=== PATIENT | male | born 1990 | race Caucasian/White ===

== ENCOUNTER 2021-06-23 18:56 | Emergency (ER) | payer SELFPAY ==
[2021-06-23] VITALS (7 sets, daily range): BP systolic 113–151; BP diastolic 70–79; PULSE 90–108; RESP 18–26; TEMP 37.7–38.3; O2SAT 94–98; BMI 27.4
--- NOTE | 2021-06-23 19:06 | XRR_ITS ---
PROCEDURE INFORMATION: Exam: XR Chest Exam date and time: 06/23/2021 7:06 PM Age: 31 years old Clinical indication: Cough and fever; Patient HX: Cough, fever, body aches TECHNIQUE: Imaging protocol: XR of the chest. Views: 1 view. COMPARISON: No relevant prior studies available. FINDINGS: Lungs: Ill-defined peripheral bibasilar opacities. Pleural spaces: Unremarkable. No pleural effusion. No pneumothorax. Heart/Mediastinum: Unremarkable. No cardiomegaly. Bones/joints: Unremarkable. XR/XR chest 1V portable [id number] IMPRESSION: Ill-defined peripheral bibasilar opacity suspicious for multifocal pneumonia. Radiation Dose CTDIVOL = (mGy): DLP = (mGy-cm)
--- NOTE | 2021-06-23 20:26 | ED_ITS ---
HPI - COVID General: Chief Complaint: Infusion: Covid [facility] Stated Complaint: coughing, fevers, body aches Time Seen by Provider: 06/23/21 19:57 Triage information: No fever, cough or shortness of breath . No known COVID + exposure last 14 days History of Present Illness: MD complaint: has COVID symptoms Prior covid testing: no COVID 19 common symptoms: positive fever(s), chills, cough, dyspnea, body aches, headache(s), throat pain, nasal congestion and nausea; negative vomiting COVID 19 other sytmptoms: negative requiring oxygen or respiratory distress Onset (ago): day(s) (5-7) Treatment prior to arrival: ibuprofen and cold medicine COVID Results: SARS-CoV-2 Antigen (Rapid) Positive (Negative) H 06/23/21 19:55 06/23/21 Review of Systems Const: Reports: fever(s), chills and body aches ENMT: Reports: throat pain and nasal congestion Resp: Reports: dyspnea GI: Reports: nausea; Denies: vomiting Neuro: Reports: headache(s) PFSH ED PFSH: Social History (Updated 12/28/20 @ 14:21 by Abran Cesar LPN) Smoking and tobacco status: never smoked Second hand smoke exposure: No Physical Exam Const: COMMON NORMALS: no acute distress, patient oriented x3 and alert HENMT: COMMON NORMALS: normocephalic and Normal external nose present HEAD & SCALP: normocephalic FACE & SINUS: normal facial exam NOSE: Normal external nose present and Normal nares present Chest: COMMONS NORMALS: normal inspection of the chest Resp: COMMON NORMALS: normal respiratory effort, No use of accessory muscles and clear to auscultation bilaterally AUSCULTATION: clear to auscultation bilaterally Cardio: COMMON NORMALS: regular rhythm RATE: tachycardic RHYTHM: regular rhythm GI: COMMON NORMALS: Normal to inspection, nondistended, normoactive bowel sounds present Neuro: COMMON NORMALS: patient oriented x3 SENSORIUM/ORIENTATION: Yes alert Course Vital Signs: Vital signs: Vital Signs Temperature 99.8 F H 06/23/21 23:19 Pulse Rate 94 06/23/21 23:19 Respiratory Rate 18 06/23/21 23:19 Blood Pressure 119/74 06/23/21 23:19 Pulse Oximetry 98 06/23/21 23:19 MDM - COVID MDM Narrative: Medical decision making narrative: 31-year-old with cough and fever. He has body aches as well. Chest x-ray shows bibasilar hazy infiltrates he is Covid positive by rapid antigen testing he has agreed to take monoclonal antibody infusion. Since he is day 7/8, and it is the weekend, he will have to get it in the ER. He will be monitored during, and after to watch for side effects or adverse reaction, then released. Lab Data: Labs: Lab Results 06/23/21 06/23/21 19:55 19:55 Influenza Type A A g Negative (Negative) Influenza Type B A g Negative (Negative) SARS-CoV-2 Ag (Rap id) Positive H (Negative) COVID Results: SARS-CoV-2 Antigen (Rapid) Positive (Negative) H 06/23/21 19:55 06/23/21 Discharge Plan Discharge Patient Disposition: Home Clinical Impression: Pneumonia due to 2019 novel coronavirus Condition: Stable Prescriptions: No Action No Known Home Medications RF: 0 Discharge Orders: Discharge ED (Routine); Ordered 06/23/21 Ordered By: Manny Sumner Discharge Diet: Advance as tolerated Discharge Activity: Limit activity as instructed Activity Restrictions/Additional Instructions: You should quarantine at home, until you are at least 14 days out of the start of your symptoms. Return for worsening shortness of breath, worsening cough, other concerning symptoms. You were given the monoclonal antibody infusion tonight which helps to stop the replication of the virus, and should improve your symptoms. Coding Level of Care Code ED Audograph Operator for Feng Fwpopeye Exam Detailed
[2021-06-23 20:34] LABS: Influenza A by IFA Negative (Negative); Influenza B by IFA Negative (Negative); SARS Covid-2 Antigen Positive (Negative)
[2021-06-23] MEDS: acetaminophen 500 mg Tablet 1000 MG PO (22:41)
== END 2021-06-23 23:21 | disposition home or self-care (01) ==
PROVIDERS: Emergency Medicine; Emergency Provider Emergency Medicine
DX: U07.1 COVID-19 (principal); J12.82 Pneumonia due to coronavirus disease 2019
CPT/HCPCS: 71045; 87426; 87804; 96365; 99284

== ENCOUNTER 2021-06-28 20:47 | Emergency (ER) | payer OTHER, SELFPAY ==
[2021-06-28 20:55] VITALS: BP 106/68; PULSE 106; RESP 20; TEMP 36.8; O2SAT 98; BMI 25.9
--- NOTE | 2021-06-28 21:05 | W.ED.BACK ---
HPI - Back Pain/Injury General: Chief Complaint: Back Pain/Injury Stated Complaint: Lower back pain, COVID+ NUMBNESS Time Seen by Provider: 06/28/21 21:05 History of Present Illness: HPI Narrative: Mr. Melgar is a 31-year-old gentleman with significant past medical history of Covid who presents to the emergency department due to back pain. He endorses continued cough though mild improvement no other typical Covid symptoms and had a coughing fit earlier and sudden onset of low back pain. Intensity symptoms is moderate to severe and worse with movement. Course has persisted. He describes tingling in his fingers and knees however no loss of continence. No other specific changes to health, exacerbating, or alleviating factors identified. Review of Systems General: Reports: 10 or more systems reviewed and unremarkable except in HPI and below PFSH ED PFSH: Social History Smoking and tobacco status: never smoked Second hand smoke exposure: No Physical Exam Narrative: EXAM NARRATIVE: GENERAL/CONSTITUTIONAL -ill-appearing. Uncomfortable appearing Eyes -no scleral icterus, no conjunctival injection ENMT - Atraumatic external nose and ears. Moist mucous membranes NECK - supple. trachea midline CARDIOVASCULAR -tachycardic rate and regular rhythm RESPIRATORY -diminished to auscultation bilaterally. Tachypnea. Normal SPO2. ABDOMEN/GI - Nontender/Nondistended. MSK - Extremities without obvious deformity or tenderness to palpation. L-spine tenderness palpation worse in the paraspinal regions though some midline tenderness. There is mild deformity of bilateral hands consistent with carpal pedal spasms. SKIN - Warm, Dry NEURO - alert and appropriately oriented. Moves all extremities equally. Course ED course: - Patient was seen and evaluated by me at bedside - Patient placed on cardiac monitors, IV access obtained - Initial evaluation notable for ill appearing as noted above with tachypnea -Symptom treatment ordered - Labs notable for no leukocytosis. ABG with respiratory alkalosis. Decreased PO2 however normal SPO2 on pulse oximeter. No acute electrolyte abnormalities. - Imaging notable for chest x-ray with left lower lobe pneumonia, I believe that this is related to patient's known Covid diagnosis. No L-spine abnormalities. - Upon serial reexamination after treatment the patient was markedly improved with resumption of normal respiratory status and improvement in symptoms - Based on patient history, evaluation, labs, and imaging as interpreted the most likely cause of the patient's condition is cough related musculoskeletal pain, COVID-19, and hyperventilation - The results of ED evaluation were discussed with the patient including prescriptions and/or symptomatic cares (if applicable) including appropriate and responsible use, followup plan, and return precautions. The patient verbalized understanding and felt safe for discharge. - Patient discharged in satisfactory condition. Vital Signs: Vital signs: Vital Signs Temperature 98.3 F 06/28/21 20:55 Pulse Rate 94 06/29/21 00:28 Respiratory Rate 14 06/29/21 00:28 Blood Pressure 129/74 06/29/21 00:28 Pulse Oximetry 97 06/29/21 00:28 MDM - Back Pain/Injury Medical Records: Attestation: I reviewed the patient's medical records. Lab Data: Attestation: I reviewed the patient's lab results. Labs: Lab Results 06/28/21 06/28/21 06/28/21 21:31 22:25 22:25 WBC 9.6 10^3/uL 10^3/ uL (4.0-10.0) RBC 4.61 10^6/uL 10^6 /uL (4.1-5.3) Hgb 13.0 g/dL g/dL (11.7-16.6) Hct 38.1 % L % (42.0-52.0) MCV 82.6 fl fl (80-94) MCH 28.2 pg pg (28.0-34.0) MCHC 34.1 g/dL g/dL (30.0-36.0) RDW 11.9 % L % (12.1-15.1) Plt Count 330 10^3/cmm 10^3 /cmm (130-400) MPV 9.9 fL fL (7.4-10.4) Neut % (Auto) 78.2 % % Lymph % (Auto) 12.0 % % Gibson % (Auto) 8.4 % % Eos % (Auto) 0.9 % % Baso % (Auto) 0.2 % % Neut # (Auto) 7.49 10^3/uL 10^3 /uL (1.8-7.7) Lymph # (Auto) 1.2 10^3/uL 10^3/ uL (0.8-4.8) Gibson # (Auto) 0.8 10^3/uL 10^3/ uL (0.2-0.9) Eos # (Auto) 0.1 10^3/uL 10^3/ uL (0.0-0.8) Baso # (Auto) 0.0 10^3/uL 10^3/ uL (0.0-0.1) Nucleated RBC % (a uto) 0 % % Nucleated RBCs # 0.0 /100WBC /100W BC Specimen Type Arterial ABG pH 7.63 H* (7.35-7.45) ABG pCO2 20.7 mmHg L mmHg (35-45) ABG pO2 72.3 mmHg L mmHg (80.0-100.0) ABG HCO3 21.7 mmol/L L mmo l/L (22-26) ABG Base Excess 2.5 mmol/L H mmol /L (-2.0-2.0) Cesar Test Pos Hematocrit 41.6 % L % (42-52) O2 Delivery Device Room air FiO2 21.0 % % Credit And Collections Analyst ID En Sodium 141 mmol/L mmol/L (136-145) Potassium 3.6 mmol/L mmol/L (3.5-5.1) Chloride 105 mmol/L mmol/L (98-107) Carbon Dioxide 22 mmol/L mmol/L (22-29) Anion Gap 17.6 (5-19) BUN 11 mg/dL mg/dL (6-20) Creatinine 0.7 mg/dL mg/dL (0.7-1.2) GFR Calculation 132.4 mL/min H mL /min (90-130) Glucose 121 mg/dL H mg/dL (65-115) Calculated Osmolal ity 293 mOsm/kg mOsm/ kg (285-295) Calcium 8.4 mg/dL L mg/dL (8.5-10.5) Total Bilirubin 0.3 mg/dL mg/dL (0.15-1.2) AST 96 U/L H U/L (0-40) ALT 40 U/L U/L (0-41) Alkaline Phosphata se 92 IU/L IU/L (40-130) C-Reactive Protein 84.4 mg/L H mg/L (0.0-4.9) Total Protein 6.5 g/dL L g/dL (6.6-8.7) Albumin 3.9 g/dL g/dL (3.5-5.2) Globulin 2.6 g/dL g/dL (1.3-4.6) Procalcitonin 0.04 ng/mL ng/mL (0-0.5) Discharge Plan Discharge Patient Disposition: Home Clinical Impression: Pneumonia due to 2019 novel coronavirus, Strain of lumbar region, Acute hyperventilation Condition: Stable Prescriptions: New oxycodone 5 mg tablet 5 mg PO Q4H PRN (Reason: pain) Qty: 6 RF: 0 methocarbamol 750 mg tablet 750 mg PO Q8H Qty: 14 RF: 0 Discharge Orders: Discharge ED (Routine); Ordered 06/28/21 Ordered By: Abran Donohue Discharge Diet: Usual diet Discharge Activity: Increase activity as tolerated Patient Instructions: Hyperventilation (ED), Muscle Strain (ED), Acute Low Back Pain (ED), COVID-19 (Coronavirus Disease 2019) (ED), Opioid Safety Activity Restrictions/Additional Instructions: Thank you for visiting the emergency department. You were seen and evaluated for low back pain associated with cough in the context of Covid. The exact cause of your symptoms is unclear though likely related to musculoskeletal pain or muscle strain. Please follow-up with your primary care provider. Please return to the emergency department for worsening symptoms or anything else that you are concerned about and feel needs emergency department evaluation. Coding Level of Care Code ED Museum Registrar for Feng Maier
--- NOTE | 2021-06-28 21:18 | XRR_ITS ---
PROCEDURE INFORMATION: Exam: XR Chest Exam date and time: 06/28/2021 9:18 PM Age: 31 years old Clinical indication: Cough and shortness of breath; Additional info: Covid, tachypnea TECHNIQUE: Imaging protocol: XR of the chest. Views: 1 view. Total images: 1 COMPARISON: CR (CHEST, ) 06/23/2021 8:12 PM FINDINGS: Lungs: Retrocardiac and left basilar subsegmental ground-glass and consolidated alveolar airspace disease of suspected left lower lobe pneumonitis/pneumonia. Radiographic resolution of the right lung pneumonitis/pneumonia. Pleural spaces: Unremarkable. No pleural effusion. No pneumothorax. Heart/Mediastinum: Cardiac structures and configuration within normal limits. Bones/joints: Unremarkable. XR/XR chest 1V portable [id number] IMPRESSION: Left lower lobe pneumonitis/pneumonia. Radiation Dose CTDIVOL = (mGy): DLP = (mGy-cm)
--- NOTE | 2021-06-28 21:18 | XRR_ITS ---
PROCEDURE INFORMATION: Exam: XR Lumbosacral Spine Exam date and time: 06/28/2021 9:18 PM Age: 31 years old Clinical indication: Low back pain TECHNIQUE: Imaging protocol: XR of the lumbosacral spine. Views: 2 or 3 views. Total images: 3 COMPARISON: No relevant prior studies available. FINDINGS: Bones/joints: Normal. No acute fracture. Normal alignment. Soft tissues: Unremarkable. XR/XR lumbar spine 2-3V* [id number] IMPRESSION: No acute findings. Radiation Dose CTDIVOL = (mGy): DLP = (mGy-cm)
[2021-06-28 21:44] LABS: ABG PCO2 20.7 mmHg (35-45); Arterial Blood Gas Hematocrit 41.6 % (42-52); Base Excess ABG 2.5 mmol/L (-2.0-2.0); Blood Gas Allen Test Pos; Blood Gas Sample Type Arterial; HCO3 ABG 21.7 mmol/L (22-26); PO2 ABG 72.3 mmHg (80.0-100.0)
[2021-06-28 21:45] LABS: ABG PH Result 7.63 (7.35-7.45)
[2021-06-28] MEDS: sodium chloride 0.9% 500 ML IV (22:36)
[2021-06-28] MEDS: ketorolac 30 mg/mL INJ 15 MG IVP (22:36)
[2021-06-28] MEDS: acetaminophen 500 mg Tablet 1000 MG PO (22:36)
[2021-06-28] MEDS: morphine 4 mg/mL SDV 1 mL IVP (22:36)
[2021-06-28 22:39] VITALS: BP 120/69; PULSE 98; RESP 18; O2SAT 97
[2021-06-28 22:40] LABS: Basophils % 0.2 %; Eosinophils # 0.1 10^3/uL (0.0-0.8); Eosinophils % 0.9 %; Hematocrit 38.1 % (42.0-52.0); Lymphocytes # 1.2 10^3/uL (0.8-4.8); Mean Corpuscular HGB Conc 34.1 g/dL (30.0-36.0); Mean Corpuscular Hemoglobin 28.2 pg (28.0-34.0); Mean Corpuscular Volume 82.6 fl (80-94); Mean Platelet Volume 9.9 fL (7.4-10.4); Monocytes # 0.8 10^3/uL (0.2-0.9); Monocytes % 8.4 %; Neutrophils # 7.49 10^3/uL (1.8-7.7); Neutrophils % 78.2 %; Nucleated Red Blood Cells % 0 %; Platelet Count 330 10^3/cmm (130-400); Red Blood Count 4.61 10^6/uL (4.1-5.3); Red Cell Distribution Width 11.9 % (12.1-15.1); White Blood Count 9.6 10^3/uL (4.0-10.0)
[2021-06-28 23:01] LABS: Alanine Aminotransferase 40 U/L (0-41); Albumin Level 3.9 g/dL (3.5-5.2); Alkaline Phosphatase 92 IU/L (40-130); Anion Gap 17.6 (5-19); Aspartate Amino Transferase 96 U/L (0-40); Blood Urea Nitrogen 11 mg/dL (6-20); C Reactive Protein 84.4 mg/L (0.0-4.9); Calcium 8.4 mg/dL (8.5-10.5); Carbon Dioxide 22 mmol/L (22-29); Chloride 105 mmol/L (98-107); Creatinine Clr Calc Pharmacy 152.2941; Globulin 2.6 g/dL (1.3-4.6); Glomerular Filtration Rate 132.4 mL/min (90-130); Glucose 121 mg/dL (65-115); Osmolality Calculated 293 mOsm/kg (285-295); Potassium 3.6 mmol/L (3.5-5.1); Sodium 141 mmol/L (136-145); Total Bilirubin 0.3 mg/dL (0.15-1.2); Total Protein 6.5 g/dL (6.6-8.7)
[2021-06-28 23:08] LABS: Procalcitonin 0.04 ng/mL (0-0.5)
[2021-06-28 23:31] VITALS: BP 116/67; PULSE 76; RESP 16; O2SAT 96
[2021-06-29 00:18] LABS: Blood Gas Operator Identificat EN; Oxygen Device ROOM AIR
[2021-06-29 00:28] VITALS: BP 129/74; PULSE 94; RESP 14; O2SAT 97
== END 2021-06-29 00:29 | disposition home or self-care (01) ==
PROVIDERS: Emergency Provider Emergency Medicine
DX: U07.1 COVID-19 (principal); J12.82 Pneumonia due to coronavirus disease 2019; S39.012A Strain of muscle, fascia and tendon of lower back, initial encounter; X58.XXXA Exposure to other specified factors, initial encounter; R06.4 Hyperventilation
CPT/HCPCS: 71045; 72100; 80053; 82803; 84145; 85025; 86140; 96361; 96374; 96375; 99284; J1885; J2270; J7040

== ENCOUNTER 2022-02-22 22:08 | Emergency (ER) | payer SELFPAY ==
[2022-02-22 22:13] VITALS: BP 142/85; PULSE 72; RESP 16; TEMP 36.1; O2SAT 96; BMI 28.8
--- NOTE | 2022-02-22 22:16 | XRR_ITS ---
PROCEDURE INFORMATION: Exam: XR Right Hand Exam date and time: 02/22/2022 10:36 PM Age: 31 years old Clinical indication: Right; Patient HX: Patient punched a metal door. C/O pain to lateral side of hand with swelling. ; Additional info: Hand pain TECHNIQUE: Imaging protocol: Radiologic exam of the Right hand. Views: 1 or 2 views. COMPARISON: No relevant prior studies available. FINDINGS: Bones/joints: There is a mildly displaced, mildly comminuted fracture of the neck of the 5th metacarpal with apex-posterior angulation compatible with boxer's fracture. Soft tissues: Soft tissue swelling is present. XR/XR hand RT 2V [id number] IMPRESSION: There is a mildly displaced, mildly comminuted fracture of the neck of the 5th metacarpal with apex-posterior angulation compatible with Boxer's fracture
--- NOTE | 2022-02-23 00:16 | ED_ITS ---
HPI - Extremity Problem General: Chief complaint: Extremity Injury, Upper Stated complaint: right hand pain Time Seen by Provider: 02/23/22 00:13 Source: patient Mode of arrival: ambulatory Limitations: no limitations History of Present Illness: 31-year-old male states that he punched a metal door today has been having right hand pain since then. He states he is got pain over the lateral portion of his hand with swelling. Pain is sharp in nature rates it a 6 out of 10 denies any other injury states the pain is worse with movement or palpation improved with rest. Associated symptoms: Deny chest pain, fever(s) or rash Review of Systems Const: Denies: fever(s), chills, body aches or change in appetite Eyes: Denies: blurry vision or eye discomfort ENMT: Denies: throat pain or dental pain Card: Denies: chest pain Resp: Denies: dyspnea GI: Denies: abdominal pain, nausea, vomiting or diarrhea : Denies: dysuria Musc: Reports: extremity pain Skin/Breast: Denies: rash Neuro: Denies: headache(s) Psych: Denies: depression Rigoberto/Lymph: Denies: easy bruising All/Imm: Denies: urticaria PFSH ED PFSH: Medical History (Updated 02/23/22 @ 00:19 by Segundo Newby MD) No pertinent past medical history Social History Smoking and tobacco status: never smoked Second hand smoke exposure: No Physical Exam Const: COMMON NORMALS: no acute distress and patient oriented x3 HENMT: COMMON NORMALS: normocephalic and atraumatic HEAD & SCALP: normocephalic and atraumatic Eye: COMMON NORMALS: conjunctivae normal CONJUNCTIVA: Yes conjunctivae normal Neck/C-Spine: COMMON NORMALS: full ROM Chest: COMMONS NORMALS: normal inspection of the chest Resp: COMMON NORMALS: normal respiratory effort Cardio: COMMON NORMALS: regular rate RATE: regular rate GI: INSPECTION: Yes normal to inspection Extremity: NARRATIVE EXTREMITY EXAM: Tenderness over right fifth metacarpal with swelling Neuro: COMMON NORMALS: patient oriented x3 Psych: COMMON NORMALS: mental status grossly normal Skin: COMMON NORMALS: no rashes or lesions noted GENERAL SKIN EXAM: no rash es or lesions noted Course Vital Signs: Vital signs: Vital Signs Temperature 97.0 F L 02/22/22 22:13 Pulse Rate 72 02/22/22 22:13 Respiratory Rate 16 02/22/22 22:13 Blood Pressure 142/85 02/22/22 22:13 Pulse Oximetry 96 02/22/22 22:13 Oxygen Delivery Me thod 02/22/22 22:13 MDM - Extremity (Nontraumatic) Medical Decision Making Patient presents here with a fracture to his right hand boxer fracture of the fifth metacarpal patient placed in a splint he is to follow-up with orthopedics he is return if worsening he understands agrees plan. Lab Data Radiology Impressions Hand X-Ray 02/22/22 22:16 IMPRESSION: There is a mildly displaced, mildly comminuted fracture of the neck of the 5th metacarpal with apex-posterior angulation compatible with Boxer's fracture Discharge Plan Discharge Patient Disposition: Home Clinical Impression: Boxer's fracture Qualifiers: Encounter type: initial encounter Fracture type: closed Qualified Code(s): S62.339A - Displaced fracture of neck of unspecified metacarpal bone, initial encounter for closed fracture Condition: Stable Prescriptions: New hydrocodone-acetaminophen 5-325 mg tablet 1 tab PO Q6H PRN (Reason: pain) Qty: 14 0RF No Action oxycodone 5 mg tablet 5 mg PO Q4H PRN (Reason: pain) Qty: 6 0RF methocarbamol 750 mg tablet 750 mg PO Q8H Qty: 14 0RF Discharge Orders: Discharge ED (Routine); Ordered 02/23/22 Ordered By: Segundo Newby Discharge Diet: Advance as tolerated Discharge Activity: Resume usual activity Patient Instructions: Boxer Fracture (ED), Opioid Safety Coding Level of Care Code ED Sewage Screen Operator for Feng Maier
[2022-02-23] MEDS: HYDROcodone-acetaminophen 5-325 mg Tablet 1 TAB PO (00:33)
[2022-02-23 00:34] VITALS: BP 135/78; PULSE 76; RESP 16; TEMP 36.9; O2SAT 97
--- NOTE | 2022-02-24 17:11 | DCPLANNER ---
Addendum entered by Radha Crockett 02/27/22 12:34: food manager received the following message from ortho regarding follow up appointment: Left vm/mailed letter to pt to schedule with [facility] Original Note: food manager had message to schedule a follow up appointment for patient with ortho. food manager sent patients information to the front office staff at ortho. Patients information will be printed and reviewed. Clinic will call patient with appointment information.
== END 2022-02-23 00:36 | disposition home or self-care (01) ==
PROVIDERS: Emergency Provider Emergency Medicine
DX: S62.336A Displaced fracture of neck of fifth metacarpal bone, right hand, initial encounter for closed fracture (principal); W22.09XA Striking against other stationary object, initial encounter
CPT/HCPCS: 29125; 73120; 99283

== ENCOUNTER → 2022-03-08 13:21 | Outpatient (BNVA) | payer SELFPAY | PROVIDERS: Referring Provider Emergency Medicine; Visit Provider Physician Assistant | DX: S61.401A Unspecified open wound of right hand, initial encounter (principal); X58.XXXA Exposure to other specified factors, initial encounter | CPT/HCPCS: 73130 ==

== ENCOUNTER 2022-03-08 16:06 | Outpatient (CLI) | payer SELFPAY | END 2022-03-08 16:07 | disposition home or self-care (01) | LOC: SPT 16:07 | PROVIDERS: Visit Provider Physician Assistant | DX: Z46.89 Encounter for fitting and adjustment of other specified devices (principal); S62.326D Displaced fracture of shaft of fifth metacarpal bone, right hand, subsequent encounter for fracture with routine healing; X58.XXXD Exposure to other specified factors, subsequent encounter | CPT/HCPCS: 97760; L3984 ==

== ENCOUNTER → 2022-03-22 13:17 | Outpatient (BNVA) | payer SELFPAY | PROVIDERS: Visit Provider Physician Assistant | DX: S62.306D Unspecified fracture of fifth metacarpal bone, right hand, subsequent encounter for fracture with routine healing (principal) | CPT/HCPCS: 73130 ==

== ENCOUNTER → 2022-04-05 10:34 | Outpatient (BNVA) | payer SELFPAY | PROVIDERS: Visit Provider Physician Assistant | DX: S62.336D Displaced fracture of neck of fifth metacarpal bone, right hand, subsequent encounter for fracture with routine healing (principal); X58.XXXD Exposure to other specified factors, subsequent encounter | CPT/HCPCS: 73130 ==

== ENCOUNTER 2024-12-06 17:08 | Emergency (ER) | payer BC, MEDICAID, SELFPAY ==
--- NOTE | 2024-12-06 17:12 | XRR_ITS ---
PROCEDURE INFORMATION: Exam: XR Right Foot Exam date and time: 12/06/2024 5:33 PM Age: 34 years old Clinical indication: Injury or trauma; Fall; Sprain or strain; Foot; Right TECHNIQUE: Imaging protocol: Radiologic exam of the right foot. Views: 3 or more views. COMPARISON: CR (LOW EXM, ) 12/06/2024 5:33 PM FINDINGS: Bones/joints: Normal. Soft tissues: Normal. XR/XR foot RT min 3V* [id number] IMPRESSION: No acute findings.
--- NOTE | 2024-12-06 17:12 | XRR_ITS ---
PROCEDURE INFORMATION: Exam: XR Right Ankle Exam date and time: 12/06/2024 5:33 PM Age: 34 years old Clinical indication: Injury or trauma; Fall; Sprain or strain; Ankle; Right TECHNIQUE: Imaging protocol: Radiologic exam of the right ankle. Views: 3 or more views. COMPARISON: CR XR foot RT min 3V* [id number] 12/06/2024 5:33 PM FINDINGS: Bones/joints: Normal. Soft tissues: Mild lateral ankle soft tissue swelling. XR/XR ankle RT min 3V* [id number] IMPRESSION: Soft tissue swelling. Negative exam for fracture.
[2024-12-06 17:16] VITALS: BP 129/79; PULSE 76; TEMP 36.5; O2SAT 99
--- NOTE | 2024-12-06 19:47 | W.ED.EXTPRO ---
HPI - Extremity Problem General: Chief complaint: Extremity Injury, Lower Stated complaint: R foot pain Time Seen by Provider: 12/06/24 19:07 Source: patient Mode of arrival: ambulatory Limitations: no limitations History of Present Illness: 34-year-old male who states that he stepped onto a root twisted his right ankle manage pain in his right lateral ankle since then he was seen at [facility] they placed him in a walking boot but he has not had any follow-up. States his pain is continued had some swelling over the lateral portion denies any new injuries rates his pain a 4 out of 10 he has been ambulating with the boot Associated symptoms: Deny chest pain, fever(s) or rash Related Data Previous Rx's ?Medication ?Instructions ?Recorded methocarbamol 750 mg tablet 750 mg PO Q8H #14 tabs 06/28/21 oxycodone 5 mg tablet 5 mg PO Q4H PRN pain #6 tabs 06/28/21 hydrocodone 5 mg-acetaminophen 325 1 tab PO Q6H PRN pain #14 tabs 02/23/22 mg tablet Fast Form Ulnar Gutter #1 ea 03/08/22 naproxen 500 mg tablet (Naprosyn) 500 mg PO BID PRN pain #20 tabs 12/06/24 Allergies Allergy/AdvReac Type Severity Reaction Status Date / Time No Known Allergies Allergy Verified 12/06/24 17:20 Review of Systems Const: Denies: fever(s), chills, body aches or change in appetite ENMT: Denies: throat pain or dental pain Card: Denies: chest pain Resp: Denies: dyspnea GI: Denies: abdominal pain, nausea, vomiting or diarrhea Musc: Reports: extremity pain; Denies: neck pain or back pain Skin/Breast: Denies: rash Neuro: Denies: headache(s) PFSH ED PFSH: Medical History No pertinent past medical history Social History Smoking and tobacco/nicotine status: never used tobacco/nicotine Second hand smoke exposure: No Physical Exam Const: COMMON NORMALS: no acute distress, patient oriented x3 and healthy appearing HENMT: COMMON NORMALS: normocephalic and atraumatic HEAD & SCALP: normocephalic and atraumatic Eye: COMMON NORMALS: conjunctivae normal CONJUNCTIVA: Yes conjunctivae normal Neck/C-Spine: COMMON NORMALS: full ROM and supple Chest: COMMONS NORMALS: normal inspection of the chest Resp: COMMON NORMALS: normal respiratory effort Cardio: COMMON NORMALS: regular rate RATE: regular rate Extremity: NARRATIVE EXTREMITY EXAM: Tenderness swelling to right lateral ankle no obvious deformity Neuro: COMMON NORMALS: patient oriented x3, moves all extremities and no focal motor deficits Psych: COMMON NORMALS: mental status grossly normal, Normal thought process present and cooperative THOUGHT PROCESS: Normal thought process present Skin: COMMON NORMALS: no rashes or lesions noted and no wounds GENERAL SKIN EXAM: no rashes or lesions noted Course Vital Signs: Vital signs: Vital Signs Temperature 97.7 F 12/06/24 17:16 Pulse Rate 76 12/06/24 17:16 Blood Pressure 129/79 12/06/24 17:16 Pulse Oximetry 99 12/06/24 17:16 Oxygen Delivery Me thod Room Air 12/06/24 17:16 MDM - Extremity (Nontraumatic) Medical Decision Making Patient presents to right ankle sprain imaging here is negative we will get him follow-up with podiatry he is to ice elevate return if worsening Lab Data Radiology Impressions Ankle X-Ray 12/06/24 17:12 IMPRESSION: Soft tissue swelling. Negative exam for fracture. Foot X-Ray 12/06/24 17:12 IMPRESSION: No acute findings. All radiology interpretation(s) finalized by discharge Discharge Plan Discharge Patient Disposition: Home Clinical Impression: Ankle sprain and strain Condition: Stable Prescriptions: New naproxen [Naprosyn] 500 mg tablet 500 mg PO BID PRN (Reason: pain) Qty: 20 0RF No Action (DME) Fast Form Ulnar Gutter See Rx Instructions .Route .MEDSUPPLY Qty: 1 0RF Rx Instructions: As directed oxycodone 5 mg tablet 5 mg PO Q4H PRN (Reason: pain) Qty: 6 0RF methocarbamol 750 mg tablet 750 mg PO Q8H Qty: 14 0RF hydrocodone-acetaminophen 5-325 mg tablet 1 tab PO Q6H PRN (Reason: pain) Qty: 14 0RF Discharge Orders: Discharge ED (Routine); Ordered 12/06/24 Ordered By: Segundo Newby Referrals: Sal Esquivel DPM [Physician, Podiatry] - 4-7 days Discharge Diet: Advance as tolerated Discharge Activity: Resume usual activity Patient Instructions: Ankle Sprain (ED) Print Language: Urdu Coding Level of Care Code ED Application Design Engineer for Feng Maier
[2024-12-06] MEDS: naproxen 500 mg Tablet PO (20:04)
[2024-12-06 20:22] VITALS: BP 131/81; PULSE 69; O2SAT 97
--- NOTE | 2024-12-09 07:03 | DCPLANNER ---
Message sent to Podiatry -Patient presents to right ankle sprain imaging here is negative we will get him follow-up with podiatry he is to ice elevate return if worsening
== END 2024-12-06 20:23 | disposition home or self-care (01) ==
PROVIDERS: Emergency Provider Emergency Medicine
DX: S93.401A Sprain of unspecified ligament of right ankle, initial encounter (principal); X58.XXXA Exposure to other specified factors, initial encounter
CPT/HCPCS: 73610; 73630; 99283; J9999